=== PATIENT | male | born 1980 | race Caucasian/White ===

== ENCOUNTER 2019-06-15 22:23 | Emergency (ER) | payer SELFPAY ==
[~2019-06-15] VITALS: Ht 172.7 cm; Wt 112.0 kg
[2019-06-15 22:30] VITALS: BP 166/90
--- NOTE | 2019-06-15 22:30 | NUR ---
TO BED # 12 AMBULATORY
--- NOTE | 2019-06-15 22:54 | NUR ---
PT TAKEN TO RAD
--- NOTE | 2019-06-15 22:58 | NUR ---
PT TAKEN TO XR VIA WHEELCHAIR.
--- NOTE | 2019-06-15 23:04 | NUR ---
39 Y/M PRESENTS TO ED FOR MID ABDOMINAL PAIN 11/19, CRAMPING PAIN, PT REPORTS NAUSEA AFTER [facility] PT REPORTS CHEWING AND SEEING A METAL PIECE OF ALUMINUM IN THE DUMPLING. A&O X 4, RR EVEN AND UNLABORED, S1S2 PRESENT, LUNGS CLEAR, ABDOMEN SOFT AND ROUND, SKIN WARM AND DRY TO TOUGH, CAP REFILL < 2 SECONDS. DENIES DIARRHEA, CP, DYSURIA OR FREQUENCY PMH- HTN, NO MEDS ( CONTROLLED WITH DIET AND WEIGHT LOSS) NKDA DENIES RX
--- NOTE | 2019-06-15 23:09 | NUR ---
PT RETURN FROM RAD
--- NOTE | 2019-06-15 23:52 | NUR ---
PT SITTING ON GURNEY, RR EVEN AND UNLABORED, NO DISTRESS NOTED.
[2019-06-16 00:22] VITALS: BP 166/90
--- NOTE | 2019-06-16 00:22 | NUR ---
Patient discharged with v/s stable. Written and verbal after care instructions given and explained. Patient verbalized understanding. Ambulatory with steady gait. All questions addressed prior to discharge. Advised to follow up with PMD.
== END 2019-06-16 00:22 | disposition home or self-care (01) ==
LOC: MED 22:23
DX: R10.9 Unspecified abdominal pain (principal); Z88.0 Allergy status to penicillin
CPT/HCPCS: 74022; 99283